=== PATIENT | female | born 1980 | race African-American/Black ===

== ENCOUNTER 2018-11-02 21:46 | Emergency (ER) | payer OTHER ==
[~2018-11-02] VITALS: Ht 172.7 cm; Wt 122.5 kg
[2018-11-02] MEDS ORDERED: LISINOPRIL10 MG PO (22:22)
[2018-11-02] MEDS ORDERED: BIRTH CONTROL PILL (22:23)
[2018-11-02 23:19] LABS: ABSOLUTE BASOPHILS 0.1 thou/uL (0.0-0.2); ABSOLUTE EOSINOPHILS 0.2 thou/uL (0.0-0.7); ABSOLUTE LYMPHOCYTES 2.3 thou/uL (0.8-5.3); ABSOLUTE MONOCYTES 0.7 thou/uL (0.0-1.2); ABSOLUTE NEUTROPHILS 8.9 thou/uL (1.6-8.1); BASOPHILS 0.4 %; EOSINOPHILS 1.8 %; HEMATOCRIT 37.7 % (37.0-47.0); HEMOGLOBIN 12.2 gm/dL (12.0-15.0); LYMPHOCYTES 18.8 %; MCHC 32.5 g/dL (28.0-37.0); MCV 80.2 fL (80.0-100.0); MPV 9.3 fl. (7.2-11.1); NUCLEATED RBCS 0 /100WBC; PLATELET COUNT* 312 thou/uL (150-400); RDW-CV 15.5 % (10.5-14.5); WBC 12.1 thou/uL (4.0-11.0)
[2018-11-02 23:25] LABS: CALCIUM 9.3 mg/dL (8.5-10.1); CREATININE 0.8 mg/dL (0.6-1.3); POTASSIUM 3.8 mmol/L (3.5-5.1)
[2018-11-02 23:30] LABS: ALBUMIN 3.7 g/dL (3.4-5.0); TOTAL BILIRUBIN 0.4 mg/dL (<0.1-1.0); TOTAL PROTEIN 8.2 g/dL (6.4-8.2)
[2018-11-03 00:13] LABS: URINE BILIRUBIN NEGATIVE (Negative); URINE BLOOD TRACE (Negative); URINE CLARITY CLEAR; URINE COLOR YELLOW; URINE GLUCOSE-RANDOM NEGATIVE (Negative); URINE KETONES NEGATIVE (Negative); URINE LEUKOCYTES-REFLEX NEGATIVE (Negative); URINE NITRITE-REFLEX NEGATIVE (Negative); URINE PROTEIN NEGATIVE (Negative); URINE UROBILINOGEN 0.2 E.U./dl (0.2-1.0)
[2018-11-03] MEDS ORDERED: HYDROCODON-ACE1 EAC8 PO (04:11)
[2018-11-03 04:50] VITALS: BP 117/45
== END 2018-11-03 04:53 | disposition still patient (30) ==
LOC: M.ERS 21:46
PROVIDERS: Nurse Practitioner Family
DX: N83.201 Unspecified ovarian cyst, right side (principal); I10 Essential (primary) hypertension; Z98.890 Other specified postprocedural states; Z88.2 Allergy status to sulfonamides; Z88.1 Allergy status to other antibiotic agents

== ENCOUNTER 2019-04-28 18:19 | Emergency (ER) | payer OTHER ==
[~2019-04-28] VITALS: Ht 172.7 cm; Wt 127.0 kg
[~2019-04-28 18:19] MED LIST: BIRTH CONTROL PILL; HYDROCODON-ACE1 EAC8 PO; LISINOPRIL10 MG PO
[2019-04-28] MEDS ORDERED: KEFLEX500 M1 PO (18:50)
[2019-04-28 19:01] VITALS: BP 150/80
== END 2019-04-28 19:03 | disposition home or self-care (01) ==
LOC: M.ERS 18:19
DX: L08.89 Other specified local infections of the skin and subcutaneous tissue (principal); I10 Essential (primary) hypertension; Z88.2 Allergy status to sulfonamides; Z88.1 Allergy status to other antibiotic agents